=== PATIENT | female | born 1935 | race Caucasian/White ===

== ENCOUNTER 2017-12-27 12:43 | Emergency (ER) | payer MEDICARE, BC ==
[2017-12-27] MEDS ORDERED: diphenhydrAMINE 25 MG Cap PO ONE (13:09)
--- NOTE | 2017-12-27 13:46 | EDM.PDOC ---
ED HPI GENERAL MEDICAL PROBLEM - General Chief Complaint: Allergic Reaction Stated Complaint: HIVES/ALLERGIC REACTION? Time Seen by Provider: 12/27/17 13:06 Source of Information: Reports: Patient, Family, RN Notes Reviewed History Limitations: Reports: No Limitations - History of Present Illness INITIAL COMMENTS - FREE TEXT/NARRATIVE: 82-year-old female presents to the emergency department today complaint of burning on her skin, she recently had a piece of [place] cheese that had started tomorrow, she did the mold and in the remaining cheese shortly after ingestion of the cheese she developed burning around her mouth face chest and arms with redness in her skin, no shortness of breath no difficulty swallowing or breathing Generalized Pain Score (Numeric/FACES): 6 - Related Data Allergies Allergy/AdvReac Type Severity Reaction Status Date / Time No Known Allergies Allergy Verified 12/27/17 12:53 Home Meds: Home Meds [place] 500 mg PO DAILY 06/10/13 [History] Ascorbic Acid [Vitamin C] 300 mg PO DAILY 06/10/13 [History] Aspirin [Children's Aspirin] 81 mg PO Q48H 06/10/13 [History] Chromium Picolinate 200 mcg PO DAILY 06/10/13 [History] Hulzajkq-Gxotubv-Zgew 149-Hyal [Glucosamine Chondroitin Complx] 1 tab PO DAILY 06/10/13 [History] Krill Oil 500 mg PO DAILY 06/10/13 [History] Lisinopril [Prinivil] 40 mg PO DAILY 06/10/13 [History] Lovastatin 10 mg PO DAILY 06/10/13 [History] Multivitamin [Multivitamins] 1 each PO DAILY 06/10/13 [History] Niacin 500 mg PO Q48H 06/10/13 [History] Vitamin B Complex 1 each PO BID 06/10/13 [History] amLODIPine Besylate [Norvasc] 5 mg PO DAILY 06/10/13 [History] traMADol HCl [Ultram] 50 mg PO Q6HR PRN 06/10/13 [History] Past Medical History HEENT History: Reports: Impaired Vision Cardiovascular History: Reports: High Cholesterol, 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: Musculoskeletal History: Reports: Arthritis Other Musculoskeletal History: injections right hip every 2 months Hematologic History: Reports: Anemia - Past Surgical History GI Surgical History: Reports: Appendectomy Musculoskeletal Surgical History: Reports: Hip Replacement Other Musculoskeletal Surgeries/Procedures:: R TIB/FIB FX Social & Family History - Tobacco Use Smoking Status *Q: Unknown Ever Smoked Second Hand Smoke Exposure: No - Recreational Drug Use Recreational Drug Use: No ED ROS ALLERGIC REACTION - Review of Systems Review Of Systems: See Below Constitutional: Reports: No Symptoms HEENT: Reports: No Symptoms Respiratory: Reports: No Symptoms Cardiovascular: Reports: No Symptoms GI/Abdominal: Reports: No Symptoms : Reports: No Symptoms Musculoskeletal: Reports: No Symptoms Skin: Reports: Pruritis, Erythema, Urticaria Neurological: Reports: No Symptoms Psychiatric: Reports: No Symptoms ED EXAM GENERAL NO PERIP PULSE - Physical Exam Exam: See Below Exam Limited By: No Limitations General Appearance: Alert, WD/WN, No Apparent Distress Throat/Mouth: Normal Inspection, Normal Lips, Normal Teeth, Normal Gums, Normal Oropharynx, Normal Voice, No Airway Compromise Head: Atraumatic, Normocephalic Neck: Normal Inspection, Supple, Non-Tender, Full Range of Motion Respiratory/Chest: No Respiratory Distress, Lungs Clear, Normal Breath Sounds, No Accessory Muscle Use Cardiovascular: Regular Rate, Rhythm, No Murmur GI/Abdominal: Soft, Non-Tender Skin Exam: Warm, Erythema (Generalized), Other (No hives or uticaria noted) Course - Vital Signs Last Recorded V/S: Last Vital Signs Temp 96.9 F 12/27/17 12:48 Pulse 100 12/27/17 12:48 Resp 16 12/27/17 12:48 BP 138/67 12/27/17 12:48 Pulse Ox 99 12/27/17 12:48 - Orders/Labs/Meds Meds: Medications Discontinued Medications Generic Name Dose Route Start Last Admin Trade Name Gianna PRN Reason Stop Dose Admin Diphenhydramine HCl 25 mg 12/27/17 13:09 12/27/17 13:27 Benadryl PO 12/27/17 13:10 25 mg ONETIME ONE Administration Departure - Departure Time of Disposition: 14:01 Disposition: Home, Self-Care 01 Condition: Good Clinical Impression: Allergic reaction Qualifiers: Encounter type: initial encounter Qualified Code(s): T78.40XA - Allergy, unspecified, initial encounter - Discharge Information Referrals: Sophia Chamorro MD [Primary Care Provider] - Forms: ED Department Discharge Additional Instructions: Continue to use Benadryl as needed for symptomatic relief, Please followup with your primary care provider in 3-5 days if not better, please call return to the emergency department with worsening of symptoms. - Assessment/Plan Plan: Assessment Acuity = acute Site and laterality = allergic reaction Etiology = secondary to mold and cheese Manifestations = none Location of injury = Home Lab values = none Plan She had significant relief with 25 mg Benadryl provided, recommend she follow- up with her primary care 3-4 days for reevaluation if not better and continue to use Benadryl as needed for symptomatic relief This note was dictated using [employer] voice recognition software please call with any questions on syntax or juan francisco.
[2017-12-27 14:15] VITALS: BP 144/66
== END 2017-12-27 14:15 | disposition home or self-care (01) ==
LOC: JP.ED 12:43
DX: T78.1XXA Other adverse food reactions, not elsewhere classified, initial encounter (principal); R20.8 Other disturbances of skin sensation; E78.00 Pure hypercholesterolemia, unspecified; I10 Essential (primary) hypertension; Z79.899 Other long term (current) drug therapy
CPT/HCPCS: 99283; A9270

== ENCOUNTER 2018-11-06 07:25 | Day surgery (SDC) | payer MEDICARE, BC ==
[2018-11-06] MEDS ORDERED: Sodium Chloride 0.9% 10 ML Syringe FLUSH PRN (08:00)
[2018-11-06 09:01] VITALS: BP 133/77
--- NOTE | 2018-11-06 11:14 | OR ---
DATE OF PROCEDURE: 11/06/2018 POSTOPERATIVE CARE: Postoperative care will be provided mainly at the [address] [place] [address] [facility] in conjunction with [facility]. PREOPERATIVE DIAGNOSIS: Cataract, left eye. POSTOPERATIVE DIAGNOSIS: Cataract, left eye. PROCEDURE: She underwent cataract extraction, phacoemulsification, intraocular lens placement in the left eye. ANESTHESIA: Topical and intracameral. ESTIMATED BLOOD LOSS: Minimal. COMPLICATIONS: None. PATHOLOGY SPECIMENS: None. SURGICAL FINDINGS: None. INDICATION FOR PROCEDURE: The patient is a 83-year-old female with history of a visually significant cataract in the left eye, which interfered with activities of daily living. This consisted of a nuclear sclerosis cataract. Following careful discussion of the risks, benefits and alternatives to cataract extraction with intraocular lens placement including blindness and , the patient elected to proceed, and informed, written consent was obtained prior to the procedure. DESCRIPTION OF THE PROCEDURE: The patient was previously identified, and a lavonne placed above the left eye. All sources, including the patient, indicated that the left eye was the correct eye. The patient was subsequently taken to the operating room where standard monitors were applied. The patient was then prepped and draped in the usual sterile fashion for ophthalmic surgery. Attention was first directed at the 12 o'clock position where a paracentesis port was fashioned. Shugar solution followed by Viscoat was instilled into the eye. Attention was then directed to the 8:30 position where a triplanar incision was made in a near-clear manner using a keratome. A continuous capsulorrhexis was then made using a combination of the cystotome and Utrata forceps. Hydrodissection was achieved using a balanced salt solution, and the lens rotated nicely. Phacoemulsification was then done using a modified [id number] technique without complication. Phaco time was 5.54. CDE. The remaining cortex was removed using the irrigation/aspiration handpiece. Provisc was then instilled into the eye. A Technis lens, model [id number], at 17.5 diopters was then placed in the capsular bag using an [place] injector. The remaining viscoelastic was removed using the irrigation/aspiration forceps. All wounds were then checked and found to be watertight. The lid speculum and drapes were removed. Maxitrol ointment was placed in the patient's left eye, and the eye was shielded. The patient tolerated the procedure well. The patient was instructed to follow up tomorrow. All needle and sponge counts were correct at the end of the procedure. There were no surgical findings. Patricia Cheney MD /[id number]
== END 2018-11-06 09:15 | disposition home or self-care (01) ==
LOC: JP.SDS 07:25
PROVIDERS: ATTEND Ophthalmology
DX: H25.12 Age-related nuclear cataract, left eye (principal); I10 Essential (primary) hypertension
CPT/HCPCS: V2632

== ENCOUNTER 2018-11-20 06:33 | Day surgery (SDC) | payer MEDICARE, BC ==
[2018-11-20] MEDS ORDERED: Sodium Chloride 0.9% 10 ML Syringe FLUSH PRN (07:00)
[2018-11-20 07:53] VITALS: BP 159/96
--- NOTE | 2018-11-20 09:07 | OR ---
DATE OF PROCEDURE: 11/20/2018 POSTOPERATIVE CARE: Postoperative care will be provided mainly at the [address] [place] [address] [facility] in conjunction with [facility]. PREOPERATIVE DIAGNOSIS: Cataract, right eye. POSTOPERATIVE DIAGNOSIS: Cataract, right eye. PROCEDURE: Phacoemulsification with intraocular lens placement, right eye. ANESTHESIA: Topical and intracameral. ESTIMATED BLOOD LOSS: Minimal. COMPLICATIONS: None. PATHOLOGY SPECIMENS: None. SURGICAL FINDINGS: None. INDICATION FOR PROCEDURE: The patient is an 83-year-old female with history of a visually significant cataract in the right eye, which interfered with activities of daily living. This consisted of a nuclear sclerosis cataract. Following careful discussion of the risks, benefits and alternatives to cataract extraction with intraocular lens placement including blindness and , the patient elected to proceed, and informed, written consent was obtained prior to the procedure. DESCRIPTION OF THE PROCEDURE: The patient was previously identified, and a lavonne placed above the right eye. All sources, including the patient, indicated that the right eye was the correct eye. The patient was subsequently taken to the operating room where standard monitors were applied. The patient was then prepped and draped in the usual sterile fashion for ophthalmic surgery. Attention was first directed at the 12 o'clock position where a paracentesis port was fashioned. Shugar solution followed by Viscoat was instilled into the eye. Attention was then directed to the 8:30 position where a triplanar incision was made in a near-clear manner using a keratome. A continuous capsulorrhexis was then made using a combination of the cystotome and Utrata forceps. Hydrodissection was achieved using a balanced salt solution, and the lens rotated nicely. Phacoemulsification was then done using a modified [id number] technique without complication. Phaco time was 7.55 CDE. The remaining cortex was removed using the irrigation/aspiration handpiece. Provisc was then instilled into the eye. A Technis lens, model [id number], at 19.0 diopters was then placed in the capsular bag using an [place] injector. The remaining viscoelastic was removed using the irrigation/aspiration forceps. All wounds were then checked and found to be watertight. The lid speculum and drapes were removed. Maxitrol ointment was placed in the patient's right eye, and the eye was shielded. The patient tolerated the procedure well. The patient was instructed to follow up tomorrow. All needle and sponge counts were correct at the end of the procedure. Patricia Cheney MD /[id number]
== END 2018-11-20 08:14 | disposition home or self-care (01) ==
LOC: JP.SDS 06:33
PROVIDERS: ATTEND Ophthalmology
DX: H25.11 Age-related nuclear cataract, right eye (principal); E78.5 Hyperlipidemia, unspecified; F41.9 Anxiety disorder, unspecified; Z88.8 Allergy status to other drugs, medicaments and biological substances
CPT/HCPCS: 66984; V2632

== ENCOUNTER 2020-10-22 09:13 | Emergency (ER) | payer MEDICARE, BC ==
[2020-10-22] MEDS ORDERED: Sodium Chloride 0.9% 10 ML Syringe FLUSH PRN (10:05)
[2020-10-22] MEDS ORDERED: HYDROmorphone 0.5 MG/0.5 ML Syringe IVPUSH ONE (10:09)
[2020-10-22] MEDS ORDERED: Pantoprazole 40 MG Vial IVPUSH ONE (10:12)
--- NOTE | 2020-10-22 10:12 | EDM.PDOC ---
ED HPI GENERAL MEDICAL PROBLEM - General Chief Complaint: Abdominal Pain Stated Complaint: STOMACH PAIN Time Seen by Provider: 10/22/20 10:00 Source of Information: Reports: Patient, Old Records, RN History Limitations: Reports: No Limitations - History of Present Illness INITIAL COMMENTS - FREE TEXT/NARRATIVE: 85 yo female presents with abdominal distention and some vomiting. Sx's began this past and has progressed. Is having normal BM's. Her emesis did look like coffee grounds. Has a pHx of an appendectomy. Denies a hx of liver dz. Is here with her . Onset: Gradual Onset Date: 10/20/20 Duration: Day(s): (2), Getting Worse Location: Reports: Abdomen Quality: Reports: Pressure Severity: Moderate Improves with: Reports: None Worsens with: Reports: Other (time) Context: Reports: Other (See HPI) Associated Symptoms: Reports: Nausea/Vomiting. 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) Abdomen Pain Score (Numeric/FACES): 7 - Related Data Allergies Allergy/AdvReac Type Severity Reaction Status Date / Time gelatin Allergy Other Verified 10/22/20 09:54 Home Meds: Home Meds Ascorbic Acid [Vitamin C] 300 mg PO DAILY 06/10/13 [History] Aspirin [Children's Aspirin] 81 mg PO Q48H 06/10/13 [History] Gagpgqwk-Zpexxwe-Buyg 149-Hyal [Glucosamine Chondroitin Complx] 1 tab PO BID 06/10/13 [History] Krill Oil 500 mg PO DAILY 06/10/13 [History] Lovastatin 10 mg PO DAILY 06/10/13 [History] Multivitamin [Multivitamins] 1 each PO DAILY 06/10/13 [History] Niacin 500 mg PO Q48H 06/10/13 [History] Vitamin B Complex 1 each PO BID 06/10/13 [History] amLODIPine Besylate [Norvasc] 5 mg PO DAILY 06/10/13 [History] lisinopriL [Prinivil] 40 mg PO DAILY 06/10/13 [History] traMADol HCl [Ultram] 50 mg PO TID PRN 06/10/13 [History] Acetaminophen [Arthritis Pain Relief] 1 tab PO DAILY PRN 11/03/18 [History] Calcium Carbonate/Vitamin D3 [Calcium 600 + D3 Softgel] 2 tab PO DAILY 11/03/18 [History] Naproxen [Naprosyn] 500 mg PO Q12HR 11/03/18 [History] tiZANidine [Zanaflex] 4 mg PO Q6H PRN 11/03/18 [History] metFORMIN [Glucophage] 500 mg PO BIDMEALS 10/22/20 [History] Past Medical History HEENT History: Reports: Cataract, Impaired Vision, Other (See Below) Other HEENT History: wears glasses Cardiovascular History: Reports: High Cholesterol, Hypertension Respiratory History: Reports: Asthma Gastrointestinal History: Reports: None 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: Musculoskeletal History: Reports: Arthritis, Back Pain, Chronic Other Musculoskeletal History: injections right hip every 2 months Endocrine/Metabolic History: Reports: Diabetes, Type II Hematologic History: Reports: Anemia - Infectious Disease History Infectious Disease History: Reports: Chicken Pox, Shingles - Past Surgical History HEENT Surgical History: Reports: Cataract Surgery GI Surgical History: Reports: Appendectomy, Colonoscopy Musculoskeletal Surgical History: Reports: Hip Replacement Other Musculoskeletal Surgeries/Procedures:: R TIB/FIB FX Social & Family History - Family History Family Medical History: No Pertinent Family History - Tobacco Use Tobacco Use Status *Q: Never Tobacco User - Caffeine Use Caffeine Use: Reports: Coffee - Recreational Drug Use Recreational Drug Use: No ED ROS GENERAL - Review of Systems Review Of Systems: See Below Constitutional: Reports: No Symptoms HEENT: Reports: No Symptoms Respiratory: Reports: No Symptoms Cardiovascular: Reports: No Symptoms GI/Abdominal: Reports: Abdominal Pain, Distension, Hematemesis, Vomiting. Denies: Black Stool, Constipation, Diarrhea : Reports: No Symptoms Musculoskeletal: Reports: No Symptoms Skin: Reports: No Symptoms Neurological: Reports: No Symptoms ED EXAM, GI/ABD - Physical Exam Exam: See Below Exam Limited By: No Limitations General Appearance: Alert, WD/WN, No Apparent Distress, Thin Eyes: Bilateral: Normal Appearance Ears: Normal External Exam, Normal Canal, Hearing Grossly Normal Nose: Normal Inspection, No Blood Throat/Mouth: Normal Inspection, Normal Lips, Normal Oropharynx, Normal Voice, No Airway Compromise Head: Atraumatic, Normocephalic Neck: Normal Inspection Respiratory/Chest: No Respiratory Distress, Lungs Clear, Normal Breath Sounds, No Accessory Muscle Use Cardiovascular: Regular Rate, Rhythm, No Edema, Tachycardia GI/Abdominal Exam: Normal Bowel Sounds, Non-Tender, Distended. No: No Distention, Guarding, Rebound Extremities: Normal Inspection, Normal Range of Motion, Non-Tender, No Pedal Edema Neurological: Alert, Oriented, CN II-XII Intact, Normal Cognition, No Motor/Se nsory Deficits Psychiatric: Normal Affect, Normal Mood Skin Exam: Warm, Dry, Intact, Normal Color, No Rash Course - Vital Signs Text/Narrative:: called [facility] @ 1225h Last Recorded V/S: Last Vital Signs Temp 36.4 C 10/22/20 10:01 Pulse 122 H 10/22/20 10:01 Resp 39 H 10/22/20 10:01 BP 141/95 H 10/22/20 10:01 Pulse Ox 100 10/22/20 10:01 - Orders/Labs/Meds Orders: Active Orders 24 hr Category Date Time Status Cardiac Monitoring [RC] .As Directed Care 10/22/20 10:15 Active UA W/MICROSCOPIC [URIN] Stat Lab 10/22/20 10:05 Ordered Iopamidol [Isovue-300 (61%)] Med 10/22/20 11:00 Active 81 ml IV . DIRECTED Sodium Chloride 0.9% [Normal Saline] 1,000 ml Med 10/22/20 10:45 Active IV ASDIRECTED Sodium Chloride 0.9% [Normal Saline] 70 ml Med 10/22/20 11:00 Active IV ASDIRECTED Sodium Chloride 0.9% [Saline Flush] Med 10/22/20 10:05 Active 10 ml FLUSH ASDIRECTED PRN Saline Lock Insert [OM.PC] Routine Oth 10/22/20 10:05 Ordered Medication Orders Sodium Chloride (Normal Saline) 1,000 mls @ 500 mls/hr IV ASDIRECTED PENNY Last Admin: 10/22/20 10:59 Dose: 500 mls/hr Documented by: ASHLY Sodium Chloride (Normal Saline) 70 mls @ 3 mls/sec IV ASDIRECTED PENNY Last Admin: 10/22/20 11:21 Dose: 3 mls/sec Documented by: THELASH Iopamidol (Isovue-300 (61%)) 81 ml IV . DIRECTED [facility] Last Admin: 10/22/20 11:21 Dose: 100 ml Documented by: THELASH Sodium Chloride (Saline Flush) 10 ml FLUSH ASDIRECTED PRN PRN Reason: Keep Vein Open Last Admin: 10/22/20 10:20 Dose: 10 ml Documented by: HAYLEY Labs: Laboratory Tests 10/22/20 10/22/20 Range/Units 10:15 10:15 WBC 18.5 H (4.5-11.0) K/uL RBC 5.46 (3.30-5.50) M/uL Hgb 14.3 (12.0-15.0) g/dL Hct 45.2 (36.0-48.0) % MCV 83 (80-98) fL MCH 26 L (27-31) pg MCHC 32 (32-36) % Plt Count 413 H (150-400) K/uL Sodium 139 L (140-148) mmol/L Potassium 5.3 H (3.6-5.2) mmol/L Chloride 103 (100-108) mmol/L Carbon Dioxide 20 L (21-32) mmol/L Anion Gap 21.3 H (5.0-14.0) mmol/L BUN 39 H (7-18) mg/dL Creatinine 1.2 H (0.6-1.0) mg/dL Est Cr Clr Drug Dosing 28.87 mL/min Estimated GFR (MDRD) 43 L (>60) Glucose 149 H (74-106) mg/dL Calcium 8.7 (8.5-10.1) mg/dL Total Bilirubin 0.5 (0.2-1.0) mg/dL AST 21 (15-37) U/L ALT 14 (12-78) U/L Alkaline Phosphatase 44 L (46-116) U/L Total Protein 5.6 L (6.4-8.2) g/dL Albumin 2.0 L (3.4-5.0) g/dL Globulin 3.6 H (2.3-3.5) g/dL Albumin/Globulin Ratio 0.6 L (1.2-2.2) Meds: Medications Generic Name Dose Route Start Last Admin Trade Name Freq PRN Reason Stop Dose Admin Sodium Chloride 1,000 mls @ 500 mls/hr 10/22/20 10:45 10/22/20 10:59 Normal Saline IV 500 mls/hr ASDIRECTED PENNY Administration Sodium Chloride 70 mls @ 3 mls/sec 10/22/20 11:00 10/22/20 11:21 Normal Saline IV 3 mls/sec ASDIRECTED PENNY Administration Iopamidol 81 ml 10/22/20 11:00 10/22/20 11:21 Isovue-300 (61%) IV 100 ml . DIRECTED PENNY Administration Sodium Chloride 10 ml 10/22/20 10:05 10/22/20 10:20 Saline Flush FLUSH 10 ml ASDIRECTED PRN Administration Keep Vein Open Discontinued Medications Generic Name Dose Route Start Last Admin Trade Name Gianna PRN Reason Stop Dose Admin Hydromorphone HCl 0.25 mg 10/22/20 10:09 10/22/20 10:16 Dilaudid IVPUSH 10/22/20 10:10 0.25 mg ONETIME ONE Administration Pantoprazole Sodium 40 mg 10/22/20 10:12 10/22/20 10:21 Protonix Iv IVPUSH 10/22/20 10:13 40 mg ONETIME ONE Administration Sodium Chloride 10 ml 10/22/20 10:51 10/22/20 11:23 Saline Flush FLUSH 10/22/20 10:52 10 ml ONETIME ONE Administration - Radiology Interpretation Free Text/Narrative:: CT abd/pelvis with IV contrast-IMPRESSION: 1. Bilateral solid adnexal masses worrisome for malignancy. Large amount of ascites throughout the abdomen pelvis may be malignant. There are areas of suspicious peritoneal thickening and enhancement in the right posterior abdomen and right pelvis. Recommend gynecologic consult. 2. Evidence of prior pancreatitis with diffuse pancreatic parenchymal atrophy and coarse calcifications. 3. Dilation of the pancreatic duct with a 1.1 cm intraductal stone in the pancreatic head. This could be further evaluated with MRCP. 4. 0.7 cm cystic lesion in the pancreatic body may represent a dilated side bran ch or side branch IPMN. 5. 1.8 cm indeterminate lesion in the lower pole of the left kidney. Recommend further evaluation with renal ultrasound. 6. Wall thickening of the sigmoid colon representing nonspecific colitis versus diverticulitis. 7. Tiny left pleural effusion. Please note that all CT scans at this facility use dose modulation, iterative reconstruction, and/or weight-based dosing when appropriate to reduce radiation dose to as low as reasonably achievable. Dictated by Marilynn Gallegos MD @ Oct 22 2020 11:58AM CT Results Date: 10/22/20 CT Results Time: 12:22 Departure - Departure Time of Disposition: 12:55 Disposition: DC/Tfer to Acute Hospital 02 Condition: Fair Clinical Impression: Abdominal malignancy Ascites Qualifiers: Ascites type: malignant Qualified Code(s): R18.0 - Malignant ascites Vomiting Qualifiers: Vomiting type: unspecified Vomiting Intractability: non-intractable Nausea presence: without nausea Qualified Code(s): R11.11 - Vomiting without nausea - Discharge Information Referrals: Ban Telles PA-C [Primary Care Provider] - Forms: ED Department Discharge Sepsis Event Note (ED) - Evaluation Sepsis Screening Result: Possible Sepsis Risk - Focused Exam Vital Signs: Vital Signs Temp Pulse Resp BP Pulse Ox 10/22/20 10:01 36.4 C 122 H 39 H 141/95 H 100 - My Orders Last 24 Hours: My Active Orders 10/22/20 10:05 UA W/MICROSCOPIC [URIN] Stat Sodium Chloride 0.9% [Saline Flush] 10 ml FLUSH ASDIRECTED PRN Saline Lock Insert [OM.PC] Routine 10/22/20 10:15 Cardiac Monitoring [RC] .As Directed 10/22/20 10:45 Sodium Chloride 0.9% [Normal Saline] 1,000 ml IV ASDIRECTED 10/22/20 11:00 Iopamidol [Isovue-300 (61%)] 81 ml IV . DIRECTED Sodium Chloride 0.9% [Normal Saline] 70 ml IV ASDIRECTED - Assessment/Plan Last 24 Hours: My Active Orders 10/22/20 10:05 UA W/MICROSCOPIC [URIN] Stat Sodium Chloride 0.9% [Saline Flush] 10 ml FLUSH ASDIRECTED PRN Saline Lock Insert [OM.PC] Routine 10/22/20 10:15 Cardiac Monitoring [RC] .As Directed 10/22/20 10:45 Sodium Chloride 0.9% [Normal Saline] 1,000 ml IV ASDIRECTED 10/22/20 11:00 Iopamidol [Isovue-300 (61%)] 81 ml IV . DIRECTED Sodium Chloride 0.9% [Normal Saline] 70 ml IV ASDIRECTED
[2020-10-22] MEDS ORDERED: Sodium Chloride 0.9% 1,000 ML IV SCH (10:45)
[2020-10-22] MEDS ORDERED: Iopamidol 612 MG/ML 100 ML Bottle IV SCH (11:00)
[2020-10-22] MEDS: Sodium Chloride 0.9% 10 ML Syringe FLUSH ONE ×2 (11:00→11:23)
--- NOTE | 2020-10-22 12:16 | CRLCT ---
INDICATION: Distension with vomiting. TECHNIQUE: CT of the abdomen and pelvis with 81 cc Isovue 300 IV contrast. Coronal and sagittal reconstructions. COMPARISON: None. FINDINGS: There are bilateral solid adnexal masses measuring 3.8 x 3.2 cm on the right and 3.0 x 2.6 cm (series 2, image 114). Findings are worrisome for malignancy. The uterus is not definitely seen. There is a large amount of ascites throughout the abdomen and pelvis which may be malignant. Areas of peritoneal thickening and enhancement in the right paracolic gutter and right pelvis. Abnormal configuration of the liver, however not cirrhotic in appearance. No focal liver lesions identified. Hepatic and portal veins are patent. Normal spleen size. Tiny amount of cholelithiasis. The adrenal glands are negative. Diffuse pancreatic parenchymal atrophy. Coarse calcifications throughout the pancreas related to prior pancreatitis. The pancreatic duct is dilated to 1.1 cm within the pancreatic head, neck, and proximal body. There appears to be a 1.0 cm intraductal stone in the pancreatic head (series 2, image 50). There is also a 0.7 cm cystic lesion in the pancreatic body which may represent a dilated side branch or side branch intraductal papillary mucinous neoplasm (series 2, image 42). Symmetric enhancement of the kidneys. Small low-attenuation lesions in both kidneys most likely represent cysts. There is a 1.8 cm lesion arising from the lower pole of the left kidney posteriorly which measures above water density and is indeterminate (series 2, image 60). No hydronephrosis. The bladder is not well seen due to streak artifact in the pelvis from bilateral hip arthroplasties. No bowel dilation. Wall thickening of the sigmoid colon could represent a nonspecific colitis versus diverticulitis. There is a prominent hyperdense diverticulum in the midportion of the sigmoid colon. The appendix is not identified. No intraperitoneal free air. Aortoiliac vascular calcifications. No lymphadenopathy. Degenerative changes of the spine. Hemangiomas in the L2 and L5 vertebral bodies. Tiny left pleural effusion with left basilar atelectasis. The right lung base is clear. IMPRESSION: 1. Bilateral solid adnexal masses worrisome for malignancy. Large amount of ascites throughout the abdomen pelvis may be malignant. There are areas of suspicious peritoneal thickening and enhancement in the right posterior abdomen and right pelvis. Recommend gynecologic consult. 2. Evidence of prior pancreatitis with diffuse pancreatic parenchymal atrophy and coarse calcifications. 3. Dilation of the pancreatic duct with a 1.1 cm intraductal stone in the pancreatic head. This could be further evaluated with MRCP. 4. 0.7 cm cystic lesion in the pancreatic body may represent a dilated side branch or side branch IPMN. 5. 1.8 cm indeterminate lesion in the lower pole of the left kidney. Recommend further evaluation with renal ultrasound. 6. Wall thickening of the sigmoid colon representing nonspecific colitis versus diverticulitis. 7. Tiny left pleural effusion. Please note that all CT scans at this facility use dose modulation, iterative reconstruction, and/or weight-based dosing when appropriate to reduce radiation dose to as low as reasonably achievable. Dictated by Marilynn Gallegos MD @ Oct 22 2020 11:58AM Signed by Dr. Marilynn Gallegos @ Oct 22 2020 12:15PM
[2020-10-22 13:57] VITALS: BP 110/77; PULSE 103
== END 2020-10-22 14:33 ==
LOC: JP.ED 09:13
DX: R18.0 Malignant ascites (principal); R11.11 Vomiting without nausea; C76.2 Malignant neoplasm of abdomen; E78.00 Pure hypercholesterolemia, unspecified; I10 Essential (primary) hypertension; J45.909 Unspecified asthma, uncomplicated; M19.90 Unspecified osteoarthritis, unspecified site; E11.9 Type 2 diabetes mellitus without complications; Z79.84 Long term (current) use of oral hypoglycemic drugs; Z79.899 Other long term (current) drug therapy; Z91.048 Other nonmedicinal substance allergy status; Z79.82 Long term (current) use of aspirin
CPT/HCPCS: 36415; 74177; 80053; 85027; 96374; 96375; 99285; C9113; J1170; J7030; Q9967

== ENCOUNTER 2020-10-26 15:16 | Emergency (ER) | payer MEDICARE, BC ==
--- NOTE | 2020-10-26 15:59 | EDM.PDOC ---
ED HPI GENERAL MEDICAL PROBLEM - General Chief Complaint: Abdominal Pain Stated Complaint: ABD PAIN Time Seen by Provider: 10/26/20 15:55 Source of Information: Reports: Patient, Old Records History Limitations: Reports: No Limitations - History of Present Illness INITIAL COMMENTS - FREE TEXT/NARRATIVE: 85 yo female here for abdominal pain after being discharged with "no pain" just yesterday from [facility] for a hospitalization for ascites due to presumed ovarian CA. Has 7 liters removed via paracentesis. Has outpatient consultations pending and multiple studies pending that were initiated at [facility]. Lives locally with her . Was discharged with no pain meds and no diuretics. Went to the clinic for her hospital f/u visit with her primary and that provider sent her right to the ER apparently without even reviewing her records. There is an [facility] TE[facility] telemedicine appt scheduled for 11/01/20. Patient says her fluid in her abdomen has returned considerably since discharge. Wants to go home if possible. Hospice has been offered and patient has not yet decided how aggressively she wants to pursue this problem. Onset: Gradual Onset Date: 10/25/20 (began recurring here. ) Duration: Day(s): (1+), Getting Worse Location: Reports: Abdomen Quality: Reports: Pressure Severity: Moderate Improves with: Reports: None Worsens with: Reports: Other (time) Context: Reports: Other (See HPI) Associated Symptoms: Reports: No Other Symptoms. 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: Other (see below) (none) abdomen Pain Score (Numeric/FACES): 5 - Related Data Allergies Allergy/AdvReac Type Severity Reaction Status Date / Time gelatin Allergy Other Verified 10/26/20 16:56 Home Meds: Home Meds Ascorbic Acid [Vitamin C] 300 mg PO DAILY 06/10/13 [History] Aspirin [Children's Aspirin] 81 mg PO Q48H 06/10/13 [History] [id number] 149-Hyal [Glucosamine Chondroitin Complx] 1 tab PO BID 06/10/13 [History] Krill Oil 500 mg PO DAILY 06/10/13 [History] Lovastatin 10 mg PO DAILY 06/10/13 [History] Multivitamin [Multivitamins] 1 each PO DAILY 06/10/13 [History] Niacin 500 mg PO Q48H 06/10/13 [History] Vitamin B Complex 1 each PO BID 06/10/13 [History] amLODIPine Besylate [Norvasc] 5 mg PO DAILY 06/10/13 [History] traMADol HCl [Ultram] 50 mg PO TID PRN 06/10/13 [History] Acetaminophen [Arthritis Pain Relief] 1 tab PO DAILY PRN 11/03/18 [History] Calcium Carbonate/Vitamin D3 [Calcium 600 + D3 Softgel] 2 tab PO DAILY 11/03/18 [History] Naproxen [Naprosyn] 500 mg PO Q12HR 11/03/18 [History] tiZANidine [Zanaflex] 4 mg PO Q6H PRN 11/03/18 [History] metFORMIN [Glucophage] 500 mg PO BIDMEALS 10/22/20 [History] Past Medical History HEENT History: Reports: Cataract, Impaired Vision, Other (See Below) Other HEENT History: wears glasses Cardiovascular History: Reports: High Cholesterol, Hypertension Respiratory History: Reports: Asthma Gastrointestinal History: Reports: None 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: Musculoskeletal History: Reports: Arthritis, Back Pain, Chronic Other Musculoskeletal History: injections right hip every 2 months Endocrine/Metabolic History: Reports: Diabetes, Type II Hematologic History: Reports: Anemia - Infectious Disease History Infectious Disease History: Reports: Chicken Pox, Shingles - Past Surgical History HEENT Surgical History: Reports: Cataract Surgery GI Surgical History: Reports: Appendectomy, Colonoscopy Musculoskeletal Surgical History: Reports: Hip Replacement Other Musculoskeletal Surgeries/Procedures:: R TIB/FIB FX Social & Family History - Family History Family Medical History: No Pertinent Family History - Caffeine Use Caffeine Use: Reports: Coffee ED ROS GENERAL - Review of Systems Review Of Systems: See Below Constitutional: Reports: No Symptoms HEENT: Reports: No Symptoms Respiratory: Reports: No Symptoms Cardiovascular: Reports: No Symptoms GI/Abdominal: Reports: Abdominal Pain (pressure), Distension. Denies: Black Stool, Bloody Stool, Constipation, Diarrhea, Hematemesis, Hematochezia, Nausea, Vomiting : Reports: No Symptoms Musculoskeletal: Reports: No Symptoms Skin: Reports: No Symptoms Neurological: Reports: No Symptoms Psychiatric: Reports: No Symptoms ED EXAM, GI/ABD - Physical Exam Exam: See Below Exam Limited By: No Limitations General Appearance: Alert, WD/WN, No Apparent Distress Eyes: Bilateral: Normal Appearance Ears: Normal External Exam, Normal Canal, Hearing Grossly Normal Nose: Normal Inspection, No Blood Throat/Mouth: Normal Inspection, Normal Lips, Normal Oropharynx, Normal Voice, No Airway Compromise Head: Atraumatic, Normocephalic Neck: Normal Inspection Respiratory/Chest: No Respiratory Distress, Lungs Clear, Normal Breath Sounds, No Accessory Muscle Use Cardiovascular: Regular Rate, Rhythm, No Edema GI/Abdominal Exam: Non-Tender, Distended (from ascites). No: No Distention, Guarding, Rigid, Rebound, Tender Extremities: Normal Inspection, Normal Range of Motion, Non-Tender, No Pedal Edema Neurological: Alert, Oriented, CN II-XII Intact, Normal Cognition, No Motor/Sensory Deficits Psychiatric: Normal Affect, Normal Mood Skin Exam: Warm, Dry, Intact, Normal Color, No Rash Course - Vital Signs Last Recorded V/S: Last Vital Signs Temp 36.7 C 10/26/20 17:09 Pulse 110 H 10/26/20 17:09 Resp 20 10/26/20 17:09 BP 106/66 10/26/20 17:09 Pulse Ox 97 10/26/20 17:09 - Orders/Labs/Meds Meds: Medications Discontinued Medications Generic Name Dose Route Start Last Admin Trade Name Freq PRN Reason Stop Dose Admin Hydrocodone Bitart/Acetaminophen 1 tab 10/26/20 16:14 10/26/20 16:54 [place] 325-5 Mg PO 10/26/20 16:15 1 tab ONETIME ONE Administration Furosemide 40 mg 10/26/20 16:14 10/26/20 16:54 Lasix PO 10/26/20 16:15 40 mg ONETIME ONE Administration Spironolactone 25 mg 10/26/20 16:14 10/26/20 16:53 Aldactone PO 10/26/20 16:15 25 mg ONETIME ONE Administration - Re-Assessments/Exams Free Text/Narrative Re-Assessment/Exam: 10/26/20 17:24 tolerated the [place] with pain relief and no nausea. Departure - Departure Time of Disposition: 17:30 Disposition: Home, Self-Care 01 Condition: Fair Clinical Impression: Malignant ascites - Discharge Information *PRESCRIPTION DRUG MONITORING PROGRAM REVIEWED*: No *COPY OF PRESCRIPTION DRUG MONITORING REPORT IN PATIENT NIGEL: No Referrals: Ban Telles PA-C [Primary Care Provider] - Forms: ED Department Discharge Additional Instructions: Keep your appt for 11/01 via telemedicine with an LBD TEACHER provider. Your local provider should see you soon to get acquainted with your new medical problems and to let you know about when your LBD TEACHER appt is on 11/01. Take [place] as dire cted for pain relief. Use Zofran as needed for nausea control. Take a spironolactone and a furosemide pill in the mornings each day starting tomorrow. Avoid salt and salty foods. Sepsis Event Note (ED) - Focused Exam Vital Signs: Vital Signs Temp Pulse Resp BP Pulse Ox 10/26/20 17:09 36.7 C 110 H 20 106/66 97 10/26/20 17:04 36.7 C 111 H 20 105/74 97 10/26/20 15:59 36.7 C 111 H 20 105/74 97
[2020-10-26] MEDS ORDERED: Spironolactone 25 MG Tab PO ONE (16:14)
[2020-10-26] MEDS ORDERED: Furosemide 40 MG Tab PO ONE (16:14)
[2020-10-26] MEDS ORDERED: Acetaminophen/HYDROcodone 325-5 MG Tab PO ONE (16:14)
[2020-10-26 17:40] VITALS: BP 105/68; PULSE 104
== END 2020-10-26 17:52 | disposition home or self-care (01) ==
LOC: JP.ED 15:16
DX: C76.2 Malignant neoplasm of abdomen (principal); R18.0 Malignant ascites; I10 Essential (primary) hypertension; E78.00 Pure hypercholesterolemia, unspecified; J45.909 Unspecified asthma, uncomplicated; E11.9 Type 2 diabetes mellitus without complications; Z88.8 Allergy status to other drugs, medicaments and biological substances; Z79.84 Long term (current) use of oral hypoglycemic drugs; Z79.82 Long term (current) use of aspirin; Z79.899 Other long term (current) drug therapy
CPT/HCPCS: 99283; A9270